=== PATIENT | female | born 1985 | race Caucasian/White ===

== ENCOUNTER 2017-04-24 20:26 | Emergency (ER) | payer SELFPAY ==
[2017-04-24 20:26] VITALS: BP 156/90
--- NOTE | 2017-04-24 21:25 | PHYS DOC ---
Past History Past Medical History: No Pertinent History Past Surgical History: No Surgical History Alcohol Use: None Drug Use: None Adult General Chief Complaint Chief Complaint: ABDOMINAL PAIN IN HPI HPI Patient is a 31 year old F who presents with abdominal pain and 39 weeks . Patient states she started to have contractions this evening and has had no care. Patient denies any water breaking. Patient denies any care. Patient states she was just diagnosed with being last month at [facility] in which she received an ultrasound that was approximately 34-35 weeks along. Patient is with a history of twins and a for twins. Patient has no other complaints. Review of Systems Review of Systems GEN: Denies fevers, chills, sweats HEENT: Denies blurred vision, sore throat CV: Denies chest pain RESP: Denies shortness of air, cough GI: Denies n/v/d : Abdominal contractions, NEURO: Denies confusion, dizziness MSK: Denies weakness, joint pain/swelling Allergies Allergies Allergies Coded Allergies Type Severity Reaction Last Updated Verified No Known Drug Allergies 04/22/16 No Physical Exam Physical Exam GEN.: No apparent distress. Alert and oriented. HEENT: Head is normocephalic, atraumatic NECK: Supple. LUNGS: CTAB. HEART: RRR, S1, S2 present. Peripheral pulses intact ABDOMEN: Soft, nontender. Positive bowel sounds. : Under sterile glove exam the cervix is dilated 10 cm with no bulging sac, heart tones were obtained at bedside by the nurse which were in the 150s EXTREMITIES: Without any cyanosis. NEUROLOGIC: Normal speech, normal tone PSYCHIATRIC: Normal affect, normal mood. SKIN: No ulcerations EKG EKG [] Radiology/Procedures Radiology/Procedures [] Course & Med Decision Making Course & Med Decision Making Pertinent Labs and Imaging studies reviewed. (See chart for details) ED course: Patient was seen and examined emergency room and a call was placed to [facility]. 2039: Discussed CC/HP/PMH with [facility]& and recommends contacting [facility] on- call since the patient was active labor and technically he should not transferred patient per EMTALA and active labor. 2044: Discussed CC/HP/PMH with Dr. Jacques (OB on at [facility]) and discussed the pros and cons of keeping the patient at [facility] versus transferring. We both acknowledged that EMTALA states that we should not transfer an OB patient in active labor, and by definition the patient was in active labor with the cervix dilated at 10 cm even though contractions were not regular. However, the OB was concerned that since we had no OB services at [facility] with no monitoring equipment for an OB patient and since the patient had no care and the last was a , he felt it was best to transfer the patient regardless to his hospital, [facility]. He accepted the patient understanding all conditions and we both felt it was in the patient's best interest to be transferred to [facility] for definitive care versus delivering at [facility] then transferring. EMS was on standby in emergency room ready to run lights and sirens. This plan was discussed with the patient and she was in agreement. [] Dragon Disclaimer Dragon Disclaimer This chart was dictated in whole or in part using Voice Recognition software in a busy, high-work load, and often noisy Emergency Department environment. It may contain unintended and wholly unrecognized errors or omissions. Departure Departure: Impression: Primary Impression: Abdominal pain affecting Additional Impressions: Cervix fully dilated Disposition: 02 XFER SHT-TRM HOSP (Dr. Sawyer montano at [facility]) Condition: STABLE (ERASED) Referrals: PCP,UNKNOWN (PCP) Problem Qualifiers FACUNDO GAMBOA DO Apr 24, 2017 21:25
== END 2017-04-24 20:49 | disposition short-term general hospital (02) ==
LOC: ER 20:26
DX: O26.893 Other specified pregnancy related conditions, third trimester (principal); R10.9 Unspecified abdominal pain; O65.5 Obstructed labor due to abnormality of maternal pelvic organs; O34.33 Maternal care for cervical incompetence, third trimester; Z3A.39 39 weeks gestation of pregnancy
CPT/HCPCS: 99285

== ENCOUNTER 2017-05-04 10:52 | Emergency (ER) | payer SELFPAY ==
[2017-05-04 11:00] VITALS: BP 132/85
--- NOTE | 2017-05-04 11:15 | PHYS DOC ---
General Chief Complaint: POST-OP PROBLEM Stated Complaint: KAILEE "POPPED OUT" Time Seen by MD: 10:54 Source: patient, old records Exam Limitations: no limitations Problems: History of Present Illness Initial Comments Patient is a 31-year-old female complaining that her operative wound kailee have popped. Patient is a 31-year-old female 10 days postdelivery of normal health ED term baby via at [facility] Dr. Jacques was the clinical rehabilitation liaison. She states that she had an uncomplicated section delivery of a healthy baby who is at home doing well. She is complaining because her kailee are uncomfortable she states that with her last section her kailee were removed after 7 days and she cannot understand why she has to wait 14 days this time. She has come requesting that I remove her kailee to allow her to be more comfortable. She denies any new vaginal symptoms no bowel or bladder issues no fever chills sweats or myalgias and no trauma. When her wound is evaluated she has no specific complaint about a specific staple or area of the incision she just in general states that the surgical wound is uncomfortable and is requesting that I remove her kailee. I asked if she had called her OB to which she replied no and that she would prefer to get her care done here and now. Her vital signs are stable and she is in no distress. Timing/Duration: other Modifying Factors: worse with movement, improves with rest Associated Symptoms: other Allergies: Coded Allergies: No Known Drug Allergies (Unverified , 04/22/16) Past Medical History Medical History: no pertinent history, other Surgical History: noncontributory ( section 04/24/2017) Para: 6 : 7 (h/o twins) Social History Smoker: non-smoker Alcohol: none Drugs: none Review of Systems Constitutional: denies chills, denies diaphoresis, denies fever, denies malaise Respiratory: denies cough, denies shortness of breath, denies wheezing Cardiovascular: denies chest pain, denies palpitations, denies syncope Gastrointestinal: denies abdominal pain, denies diarrhea, denies nausea, denies vomiting Genitourinary: denies discharge, denies dysuria, denies frequency, denies hematuria, denies pain Musculoskeletal: denies back pain, denies joint swelling, denies neck pain Skin: see HPI Psychiatric/Neurological: denies headache, denies numbness, denies paresthesia , denies seizure Hematologic/Lymphatic: denies blood clots, denies easy bleeding, denies easy bruising Physical Exam General Appearance: WD/WN (lites and minutes), no apparent distress Ear, Nose, Throat: hearing grossly normal, normal ENT inspection Neck: full range of motion, supple Respiratory: normal breath sounds, no respiratory distress Gastrointestinal: normal bowel sounds, soft, no organomegaly, other ( nondistended, stapled surgical wound with kailee appropriately in place. Is appropriately tender, there is no erythema wound edges are approximated and there is no bleeding or discharge. In summary it appears to be normal healing postoperative section wound on postoperative day #10.) Back: no vertebral tenderness, CVA tenderness (R) Extremities: normal range of motion, non-tender, normal inspection, no pedal edema, no calf tenderness Neurologic/Psychiatric: city carrier II-XII nml as tested, no motor/sensory deficits, alert, oriented x 3, other (slurring noted the patient also does have braces is difficult to determine if she might be slightly altered or if her speech may be slurred due to dental hardware) Skin: normal color, warm/dry ( postop wound as described above) Orders, Labs, Meds I advised the patient that with any questions regarding her wound her first call should be to her OB. I reassured her that it appeared she was healing well and no emergent condition is evident from today's evaluation. While it is possible she may have torn some scar tissue or an internal suture no evidence of that on today's exam. I discussed signs and symptoms to monitor as well as indications for urgent return to the department. Once again I urged her to call her OB with any questions regarding her surgical wound before seeking other medical treatment as that is what she will be advised. Her questions were answered she was reassured she expressed agreement and understanding of the treatment plan. Departure Time of Disposition: 11:13 Disposition: HOME, SELF-CARE Diagnosis: post-operative discomfort Condition: GOOD Patient Instructions: Delivery, Care After Additional Instructions: As discussed you may have put stress on an internal suture or torn some internal scar tissue. Either way no emergent medical condition regarding your stapled postoperative wound is evident from today's evaluation. Continue activity restrictions given to you by your clinical rehabilitation liaison until your follow-up. Follow-up with your surgeon as scheduled for wound check and anticipated staple removal. Return to ED with new or changing symptoms. JH BURLESON DO May 04, 2017 11:15
== END 2017-05-04 11:19 | disposition home or self-care (01) ==
LOC: ER 10:52
DX: Z39.2 Encounter for routine postpartum follow-up (principal); O90.89 Other complications of the puerperium, not elsewhere classified; Z98.890 Other specified postprocedural states
CPT/HCPCS: 99281

== ENCOUNTER 2017-10-23 12:30 | Emergency (ER) | payer OTHER ==
[~2017-10-23] VITALS: Ht 154.9 cm; Wt 72.6 kg
[2017-10-23 12:30] VITALS: BP 124/66
--- NOTE | 2017-10-25 06:12 | ED.ADGEN ---
Past History Past Medical History: No Pertinent History Past Surgical History: Alcohol Use: None Drug Use: None Adult General Chief Complaint Chief Complaint Upper back pain HPI HPI Patient is a 22-year-old female presents with diffuse upper back pain 3 days. 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 Patient reports diffuse perispinal pain, tenderness. Pain is described as sharp worse with movement and trunk rotation. Denies traumatic injury. Denies extremity weakness loss of sensation. Denies history of chronic upper back pain. Patient's taken [id number] medication without relief. She has not been evaluated for this complaint prior to ED today.[] Review of Systems Review of Systems ROS as per HPI.[] All other systems were reviewed and found to be within normal limits, except as documented in this note. Allergies Allergies Allergies Coded Allergies Type Severity Reaction Last Updated Verified No Known Drug Allergies 04/22/16 No Physical Exam Physical Exam Constitutional: Well developed, well nourished, no acute distress, non-toxic appearance. [] HENT: Normocephalic, atraumatic, bilateral external ears normal, oropharynx moist, nose normal. [] Eyes: PERRLA, EOMI, conjunctiva normal, no discharge. [] Neck: Normal range of motion, no tenderness, supple, no stridor. [] Cardiovascular:Heart rate regular rhythm, no murmur. [] Lungs & Thorax: Bilateral breath sounds clear to auscultation. [] Abdomen: Bowel sounds normal, soft, no tenderness. [] Skin: Warm, dry, no erythema, no rash. [] Back: Diffuse upper thoracic pain, tenderness.[] Extremities: No tenderness. [] Neurologic: Alert and oriented X 3. [] Psychologic: Affect normal, judgement normal, mood normal. [] Current Patient Data Vital Signs Vital Signs Date Time Temp Pulse Resp B/P (MAP) Pulse Ox O2 Delivery O2 Flow Rate FiO2 10/23/17 13:00 98 20 99 Room Air 10/23/17 12:30 98.5 EKG EKG [] Radiology/Procedures Radiology/Procedures [] Course & Med Decision Making Course & Med Decision Making Pertinent Labs and Imaging studies reviewed. (See chart for details) [Reproducible upper back pain, No neuro deficits. ] Final Impression Final Impression 1 Thoracic back pain] Problems: Dragon Disclaimer Dragon Disclaimer This electronic medical record was generated, in whole or in part, using a voice recognition dictation system. JUDY SILVA DO Oct 25, 2017 06:12
== END 2017-10-23 13:15 | disposition home or self-care (01) ==
LOC: ER 12:30
DX: M54.6 Pain in thoracic spine (principal)
CPT/HCPCS: 99283

== ENCOUNTER 2018-12-10 22:43 | Emergency (ER) | payer SELFPAY ==
[~2018-12-10] VITALS: Ht 154.9 cm; Wt 80.0 kg
[2018-12-10 23:16] LABS: BASO % 0 % (0-3); EOS # 0.2 x10^3/uL (0.0-0.7); EOS % 2 % (0-3); HEMATOCRIT 30.5 % (36.0-47.0); HEMOGLOBIN 9.6 g/dL (12.0-15.5); LYMPH # 1.4 x10^3/uL (1.0-4.8); LYMPH % 12 % (24-48); MEAN CORPUSCULAR HEMOGLOBIN 23 pg (25-35); MEAN CORPUSCULAR HGB CONC 31 g/dL (31-37); MEAN CORPUSCULAR VOLUME 73 fL (79-100); MONO # 0.7 x10^3/uL (0.0-1.1); MONO % 6 % (0-9); NEUT # 9.3 x10^3uL (1.8-7.7); NEUT % 80 % (31-73); PLATELET COUNT 320 x10^3/uL (140-400); RED BLOOD COUNT 4.21 x10^6/uL (3.50-5.40); RED CELL DISTRIBUTION WIDTH 15.3 % (11.5-14.5); WHITE BLOOD COUNT 11.5 x10^3/uL (4.0-11.0)
[2018-12-10 23:23] LABS: ALBUMIN 2.8 g/dL (3.4-5.0); ALBUMIN/GLOBULIN RATIO 0.7 (1.0-1.7); CALCIUM 8.6 mg/dL (8.5-10.1); CREATININE 0.5 mg/dL (0.6-1.0); POTASSIUM 3.9 mmol/L (3.5-5.1); TOTAL BILIRUBIN 0.5 mg/dL (0.2-1.0); TOTAL PROTEIN 6.9 g/dL (6.4-8.2)
[2018-12-10 23:29] LABS: BILIRUBIN,URINE NEG (NEG); CLARITY,URINE HAZY; COLOR,URINE YELLOW; GLUCOSE,URINE NEG (NEG)
[2018-12-10 23:30] LABS: BACTERIA,URINE MOD /HPF (0-FEW); NITRITE,URINE NEG (NEG); RBC,URINE OCC /HPF (0-2); SQUAMOUS EPITHELIAL CELL,UR OCC /LPF; UROBILINOGEN,URINE 1 mg/dL (0.2 mg/dL)
[2018-12-10] MEDS ORDERED: IV NORMAL SALINE 1,000ML 1,000 ML IV SCH (23:30)
[2018-12-10 23:44] LABS: % BANDS 5 % (0-9); % EOS 1 % (0-5); % LYMPHS 11 % (24-48); % MONOS 2 % (0-10); % SEGS 81 % (35-66); PLT ESTIMATE ADEQUATE (ADEQUATE)
[2018-12-10 23:45] LABS: ANISOCYTOSIS SLIGHT; HYPOCHROMIA SLIGHT; MICROCYTOSIS SLIGHT
--- NOTE | 2018-12-11 00:49 | PHYS DOC ---
Past History Past Medical History: No Pertinent History Past Surgical History: Alcohol Use: None Drug Use: None Adult General Chief Complaint Chief Complaint: ABDOMINAL PAIN IN HPI HPI Patient is a 33-year-old female who presents with report that she thinks that her water broke. Patient states that she is A2 and believes herself to have a due date of around December 25. She indicates that she has had no care. She states that she just found out she was late last month and states that she thought that the weight gain was because she thought maybe she had a tumor in her abdomen. She reports having a lot of pressure around her vagina and her lower back. She states that due to having had so many children, she does not feel labor pains the way she used to. She states that earlier this evening when she was in the shower, she felt a gush of fluid from her vagina and thought that maybe her water broke. She states that she has had a couple of similar episodes where she passed a small amount of fluid.[] Review of Systems Review of Systems Constitutional: Denies fever or chills [] Respiratory: Denies cough or shortness of breath [] Cardiovascular: No additional information not addressed in HPI [] GI: Complains of lower abdominal pressure without vomiting or diarrhea [] : Denies dysuria or hematuria. Complains of vaginal pressure. [] Musculoskeletal: Complains of lower back pressure and pain [] All other systems were reviewed and found to be within normal limits, except as documented in this note. Current Medications Current Medications Current Medications Medications (Trade) Dose Ordered Sig/Jason Start Time Stop Time Status Last Admin Dose Admin Sodium Chloride 1,000 ml @ 1,000 mls/hr Q1H 12/10/18 23:30 12/11/18 00:29 DC 12/10/18 23:59 1,000 MLS/HR Allergies Allergies Allergies Coded Allergies Type Severity Reaction Last Updated Verified No Known Drug Allergies 04/22/16 No Physical Exam Physical Exam Constitutional: Well developed, well nourished, no acute distress, non-toxic appearance. [] HENT: Normocephalic, atraumatic, bilateral external ears normal, oropharynx moist, no oral exudates, nose normal. [] Eyes: PERRLA, EOMI, conjunctiva normal, no discharge. [] Neck: Normal range of motion, no tenderness, supple, no stridor. [] Cardiovascular:Heart rate regular rhythm, no murmur [] Lungs & Thorax: Bilateral breath sounds clear to auscultation [] Abdomen: Bowel sounds normal, gravid, measuring to 38 cm. [] Skin: Warm, dry, no erythema, no rash. [] : A sterile speculum examination was performed with nurse odd job worker present. A thick white discharge was present. Unable to visualize cervical os. Bimanual exam demonstrates vertex presentation at -3 station with cervix fairly effaced. Extremities: No tenderness, no cyanosis, no clubbing, ROM intact. [] Neurologic: Alert and oriented X 3, no focal deficits noted. [] Current Patient Data Vital Signs Vital Signs Date Time Temp Pulse Resp B/P (MAP) Pulse Ox O2 Delivery O2 Flow Rate FiO2 12/10/18 22:43 98.4 89 20 116/80 (92) 99 Room Air Lab Results Laboratory Tests Test 12/10/18 22:43 12/10/18 23:08 White Blood Count 11.5 x10^3/uL (4.0-11.0) H Red Blood Count 4.21 x10^6/uL (3.50-5.40) Hemoglobin 9.6 g/dL (12.0-15.5) L Hematocrit 30.5 % (36.0-47.0) L Mean Corpuscular Volume 73 fL (79-100) L Mean Corpuscular Hemoglobin 23 pg (25-35) L Mean Corpuscular Hemoglobin Concent 31 g/dL (31-37) Red Cell Distribution Width 15.3 % (11.5-14.5) H Platelet Count 320 x10^3/uL (140-400) Neutrophils (%) (Auto) 80 % (31-73) H Lymphocytes (%) (Auto) 12 % (24-48) L Monocytes (%) (Auto) 6 % (0-9) Eosinophils (%) (Auto) 2 % (0-3) Basophils (%) (Auto) 0 % (0-3) Neutrophils # (Auto) 9.3 x10^3uL (1.8-7.7) H Lymphocytes # (Auto) 1.4 x10^3/uL (1.0-4.8) Monocytes # (Auto) 0.7 x10^3/uL (0.0-1.1) Eosinophils # (Auto) 0.2 x10^3/uL (0.0-0.7) Basophils # (Auto) 0.0 x10^3/uL (0.0-0.2) Segmented Neutrophils % 81 % (35-66) H Band Neutrophils % 5 % (0-9) Lymphocytes % 11 % (24-48) L Monocytes % 2 % (0-10) Eosinophils % 1 % (0-5) Platelet Estimate Adequate (ADEQUATE) Hypochromasia Slight Anisocytosis Slight Microcytosis Slight Sodium Level 140 mmol/L (136-145) Potassium Level 3.9 mmol/L (3.5-5.1) Chloride Level 104 mmol/L (98-107) Carbon Dioxide Level 23 mmol/L (21-32) Anion Gap 13 (6-14) Blood Urea Nitrogen 4 mg/dL (7-20) L Creatinine 0.5 mg/dL (0.6-1.0) L Estimated GFR (Cockcroft-Gault) 143.0 BUN/Creatinine Ratio 8 (6-20) Glucose Level 66 mg/dL (70-99) L Calcium Level 8.6 mg/dL (8.5-10.1) Total Bilirubin 0.5 mg/dL (0.2-1.0) Aspartate Amino Transferase (AST) 12 U/L (15-37) L Alanine Aminotransferase (ALT) 11 U/L (14-59) L Alkaline Phosphatase 116 U/L (46-116) Total Protein 6.9 g/dL (6.4-8.2) Albumin 2.8 g/dL (3.4-5.0) L Albumin/Globulin Ratio 0.7 (1.0-1.7) L Urine Collection Type Unknown Urine Color Yellow Urine Clarity Hazy Urine pH 7.0 Urine Specific [place] 1.020 Urine Protein 30 mg/dl (NEG-TRACE) Urine Glucose (UA) Neg mg/dL (NEG) Urine Ketones (Stick) Neg mg/dL (NEG) Urine Blood Trace (NEG) Urine Nitrite Neg (NEG) Urine Bilirubin Neg (NEG) Urine Urobilinogen Dipstick 1 mg/dL (0.2 mg/dL) Urine Leukocyte Esterase Small (NEG) Urine RBC Occ /HPF (0-2) Urine WBC 1-4 /HPF (0-4) Urine Squamous Epithelial Cells Occ /LPF Urine Bacteria Mod /HPF (0-FEW) EKG EKG [] Radiology/Procedures Radiology/Procedures [] Course & Med Decision Making Course & Med Decision Making Pertinent Labs and Imaging studies reviewed. (See chart for details) Patient moved to room upon arrival was evaluated by your medical staff and pelvi c exam was performed with nurse odd job worker present. Upon completion of workup, [facility] was contacted and Dr. Diallo, on-call for [facility], is accepting patient in transfer over to labor and delivery floor. Dragon Disclaimer Dragon Disclaimer This electronic medical record was generated, in whole or in part, using a voice recognition dictation system. Departure Departure: Impression: Primary Impression: Abdominal pain affecting Disposition: XFER SHT-TRM HOSP Condition: GOOD Referrals: PCP,NO (PCP) KATYA MANNING Jr. DO Dec 11, 2018 00:49
[2018-12-11 01:44] LABS: BARBITURATES NEG (NEG); BENZODIAZEPINES NEG (NEG); CANNABINOIDS NEG (NEG); COCAINE NEG (NEG); METHADONE NEG (NEG); OPIATES NEG (NEG); PHENCYCLIDINE NEG (NEG)
[2018-12-11 01:47] LABS: AMPHETAMINE/METHAMPHETAMINE NEG (NEG)
[2018-12-11 01:50] VITALS: BP 112/69
== END 2018-12-11 02:22 | disposition short-term general hospital (02) ==
LOC: ER 22:43
DX: O26.893 Other specified pregnancy related conditions, third trimester (principal); R10.30 Lower abdominal pain, unspecified; M54.5 Low back pain; Z3A.00 Weeks of gestation of pregnancy not specified; Z98.890 Other specified postprocedural states
CPT/HCPCS: 36415; 80053; 80307; 81001; 85007; 85025; 86900; 86901; 87086; 99285-25; J7030

== ENCOUNTER 2019-02-08 13:13 | Emergency (ER) | payer MEDICAID, OTHER ==
[~2019-02-08] VITALS: Ht 157.5 cm; Wt 68.9 kg
[2019-02-08] MEDS ORDERED: IV NORMAL SALINE 1,000ML 1,000 ML IV SCH (13:27)
[2019-02-08] MEDS ORDERED: KETOROLAC 30 MG/ML VIAL. IV ONE (13:30)
[2019-02-08] MEDS ORDERED: HYOSCYAMINE 0.125 MG TAB.RAPDIS PO ONE (13:30)
--- NOTE | 2019-02-08 13:39 | PHYS DOC ---
Past History Past Medical History: No Pertinent History (STACY LOVELL DO) Past Surgical History: (STACY LOVELL DO) Smoking: Cigarettes Alcohol Use: Rarely Drug Use: None (STACY LOVELL DO) Adult General Chief Complaint Chief Complaint: ABDOMINAL PAIN HPI HPI Patient is a 33-year-old female presents with diffuse abdominal pain, right worse than left. This started 2 days ago and improved with Excedrin. She was moving apartments yesterday. Pain became worse today and is more generalized. She is approximately 7 weeks post . She is not breast-feeding. Denies any vaginal bleeding, discharge, hematuria, nor dysuria. Denies any trauma. Denies any other surgical history on her abdomen other than the . She has taken no pain medicine today. Reports the pain is moderate to severe in intensity. Increased pain with movement, better with holding still. Some nausea, no vomiting or diarrhea.[] (STACY LOVELL DO) Review of Systems Review of Systems Constitutional: Denies fever or chills [] Eyes: Denies change in visual acuity, redness, or eye pain [] HENT: Denies nasal congestion or sore throat [] Respiratory: Denies cough or shortness of breath [] Cardiovascular: No chest pain, no palpitations, no dyspnea on exertion[] GI: See history of present illness[] : Denies dysuria or hematuria [] Musculoskeletal: Denies back pain or joint pain [] Integument: Denies rash or skin lesions [] Neurologic: Denies headache, focal weakness or sensory changes [] Endocrine: Denies polyuria or polydipsia [] All other systems were reviewed and found to be within normal limits, except as documented in this note. (STACY LOVELL DO) Current Medications Current Medications Current Medications Medications (Trade) Dose Ordered Sig/Jason Start Time Stop Time Status Last Admin Dose Admin Hyoscyamine (Anaspaz) 0.125 mg 1X ONCE 02/08/19 13:30 02/08/19 13:34 DC Ketorolac Tromethamine (Toradol 30mg Vial) 30 mg 1X ONCE 02/08/19 13:30 02/08/19 13:34 DC Ondansetron HCl (Zofran) 4 mg 1X ONCE 02/08/19 13:45 02/08/19 13:46 UNV Sodium Chloride 1,000 ml @ 1,000 mls/hr Q1H 02/08/19 13:27 02/08/19 14:26 ([facility]) Allergies Allergies Allergies Coded Allergies Type Severity Reaction Last Updated Verified No Known Drug Allergies 04/22/16 No ([facility]) Physical Exam Physical Exam Constitutional: Well developed, well nourished, no acute distress, non-toxic ap pearance. [] HENT: Normocephalic, atraumatic, bilateral external ears normal, oropharynx moist, no oral exudates, nose normal. [] Eyes: PERRLA, EOMI, conjunctiva normal, no discharge. [] Neck: Normal range of motion, no tenderness, supple, no stridor. [] Cardiovascular:Heart rate regular rhythm, no murmur [] Lungs & Thorax: Bilateral breath sounds clear to auscultation [] Abdomen: Bowel sounds normal, soft, diffuse tenderness, no rebound, no guarding, no rigidity, no Null's sign, no specific McBurney's point tenderness, no masses, no pulsatile masses. [] Skin: Warm, dry, no erythema, no rash. [] Back: No tenderness, no CVA tenderness. [] Extremities: No tenderness, no cyanosis, no clubbing, ROM intact, no edema. [] Neurologic: Alert and oriented X 3, normal motor function, normal sensory functi on, no focal deficits noted. [] Psychologic: Affect normal, judgement normal, mood normal. [] ([facility]) Current Patient Data Vital Signs Vital Signs Date Time Temp Pulse Resp B/P (MAP) Pulse Ox O2 Delivery O2 Flow Rate FiO2 02/08/19 13:20 98.0 97 20 100 Room Air ([facility]) EKG EKG [] ([facility]) Radiology/Procedures Radiology/Procedures CT abdomen/pelvis with contrast 02/08/2019 1:34 PM INDICATION: Right-sided abdominal pain COMPARISON: None available TECHNIQUE: Multiple axial CT images of the abdomen and pelvis were obtained after the intravenous administration of 75 mL Omnipaque 300. Coronal and sagittal reformats are provided. FINDINGS: Heart size within normal limits. Lung bases are clear. There is a 6 mm hypodense lesion within the medial segment left hepatic lobe which is too small to characterize. Findings are statistically favored represent simple cysts or hemangiomas. Spleen is nonenlarged. Adrenal glands are normal. Pancreas is normal. Calcific gallstones are identified within the gallbladder. The abdominal aorta is normal in course and caliber. There are no pathologically enlarged lymph nodes in the abdomen and pelvis. There is no abdominal free fluid. There is no free intraperitoneal air. Oral contrast was administered. Opacified bowel loops demonstrate normal mucosal fold pattern. Small and large bowel are normal in caliber. There is no evidence for bowel obstruction. There are no pericolonic inflammatory changes. A normal, nondilated appendix is visualized without adjacent inflammatory changes. Simple renal cyst in the superior pole right kidney measures 10 mm. The kidneys enhance symmetrically. There is no suspicious renal mass. There is no hydronephrosis. There are no suspected calculi within the kidneys, ureters or urinary bladder. Right adnexal cystic lesion is identified with crenulated margins measuring 16 mm suspicious for a hemorrhagic cyst within the right ovary. No suspicious left adnexal mass. Cystic lesion along the anterior lower uterine segment measures 22 x 17 mm and may represent a degenerating uterine fibroid versus ovarian cyst. No suspicious osseous normality is identified. IMPRESSION: 1. No evidence for bowel obstruction or inflammation. 2. Crenulated cystic lesion within the right adnexa measures 16 mm suspicious for hemorrhagic cyst. 3. Cystic area within the anterior lower uterine segment may represent degenerating uterine fibroid. Further characterization with ultrasound pelvis may be of benefit. 4. 6 mm hypodensity within the medial segment left hepatic lobe is too small to characterize. This is statistically favored represent benign etiology such as a simple cyst or hemangioma. 5. Cholelithiasis.[] (STACY LOVELL DO) Course & Med Decision Making Course & Med Decision Making Pertinent Labs and Imaging studies reviewed. (See chart for details) ED course: Patient arrived, was placed in bed, and tolerated exam well. IV access was established, she was given IV fluids as well as pain medicine. She was able to tolerate oral contrast. She was transported to and from radiology with any complications. After returning from radiology, discussing the findings with the patient, she had increasing pain. Additional medicine was administered, an ultrasound was ordered due to the gallstones concern for possible obstruction. She is 13, with 7 live births.[] (STACY LOVELL DO) Course & Med Decision Making Reviewed history of patient's at shift change onset of severe right upper quadrant and epigastric pain that at times radiated to right shoulder since last night. Pain started after meal at [employer] restaurant. Mother had her gallbladder removed at age 30, Uncles had gallbladder removed at age 30's, Aunt had her gallbladder removed at age 25- and other family members. Discussed labs and US results with pt. and Dr. Mares- Plan transfer to [facility] for possible surgery . 1899 hrs. [facility] accepts pt. in transfer. Consult to Dr. Edwards. Discussed presentation and eval with Dr. Edwards - will consult on pt. Impression: 1. Abdomen Pain 2. Acute cholecystitis with stones 3. Leukocytosis 17.6 4. Microcytic hyperchromic indices 76/24 5. Thrombocytosis 410 (MARY REYNA MD) Dragon Disclaimer Dragon Disclaimer This electronic medical record was generated, in whole or in part, using a voice recognition dictation system. (STACY LOVELL DO) Departure Departure: Referrals: PCP,NO (PCP) Discharge Summary Visit Information Final Diagnosis Problems Medical Problems: (1) Cholecystitis, acute with cholelithiasis Status: Acute (MARY REYNA MD) Brief Hospital Course Allergies Allergies Coded Allergies Type Severity Reaction Last Updated Verified No Known Drug Allergies 04/22/16 No Vital Signs Vital Signs Date Time Temp Pulse Resp B/P (MAP) Pulse Ox O2 Delivery O2 Flow Rate FiO2 02/08/19 19:38 58 20 122/56 (78) 96 Room Air 02/08/19 13:20 98.0 Lab Results Laboratory Tests Test 02/08/19 13:48 02/08/19 14:27 White Blood Count 17.6 x10^3/uL (4.0-11.0) Red Blood Count 5.29 x10^6/uL (3.50-5.40) Hemoglobin 12.4 g/dL (12.0-15.5) Hematocrit 40.0 % (36.0-47.0) Mean Corpuscular Volume 76 fL (79-100) Mean Corpuscular Hemoglobin 24 pg (25-35) Mean Corpuscular Hemoglobin Concent 31 g/dL (31-37) Red Cell Distribution Width 20.7 % (11.5-14.5) Platelet Count 410 x10^3/uL (140-400) Neutrophils (%) (Auto) 85 % (31-73) Lymphocytes (%) (Auto) 10 % (24-48) Monocytes (%) (Auto) 4 % (0-9) Eosinophils (%) (Auto) 1 % (0-3) Basophils (%) (Auto) 0 % (0-3) Neutrophils # (Auto) 14.9 x10^3uL (1.8-7.7) Lymphocytes # (Auto) 1.7 x10^3/uL (1.0-4.8) Monocytes # (Auto) 0.7 x10^3/uL (0.0-1.1) Eosinophils # (Auto) 0.2 x10^3/uL (0.0-0.7) Basophils # (Auto) 0.1 x10^3/uL (0.0-0.2) Segmented Neutrophils % 85 % (35-66) Band Neutrophils % 3 % (0-9) Lymphocytes % 8 % (24-48) Monocytes % 2 % (0-10) Eosinophils % 2 % (0-5) Toxic Vacuolation Present Platelet Estimate Increased (ADEQUATE) Large Platelets Occ Polychromasia Present Anisocytosis Present Microcytosis Slight Tear Drop Cells Occ Ovalocytes Occ Sodium Level 140 mmol/L (136-145) Potassium Level 4.1 mmol/L (3.5-5.1) Chloride Level 105 mmol/L (98-107) Carbon Dioxide Level 26 mmol/L (21-32) Anion Gap 9 (6-14) Blood Urea Nitrogen 11 mg/dL (7-20) Creatinine 0.9 mg/dL (0.6-1.0) Estimated GFR (Cockcroft-Gault) 72.6 BUN/Creatinine Ratio 12 (6-20) Glucose Level 102 mg/dL (70-99) Calcium Level 8.9 mg/dL (8.5-10.1) Total Bilirubin 0.6 mg/dL (0.2-1.0) Aspartate Amino Transf (AST/SGOT) 14 U/L (15-37) Alanine Aminotransferase (ALT/SGPT) 17 U/L (14-59) Alkaline Phosphatase 67 U/L (46-116) Total Protein 7.6 g/dL (6.4-8.2) Albumin 3.8 g/dL (3.4-5.0) Albumin/Globulin Ratio 1.0 (1.0-1.7) Lipase 69 U/L (73-393) Urine Collection Type Unknown Urine Color Yellow Urine Clarity Clear Urine pH 5.5 Urine Specific [place] 1.025 Urine Protein Trace (NEG-TRACE) Urine Glucose (UA) Neg mg/dL (NEG) Urine Ketones (Stick) Neg mg/dL (NEG) Urine Blood Small (NEG) Urine Nitrite Neg (NEG) Urine Bilirubin Neg (NEG) Urine Urobilinogen Dipstick 0.2 mg/dL (0.2 mg/dL) Urine Leukocyte Esterase Neg (NEG) Urine RBC 1-2 /HPF (0-2) Urine WBC 1-4 /HPF (0-4) Urine Squamous Epithelial Cells Occ /LPF Urine Bacteria 0 /HPF (0-FEW) Urine Mucus Slight /LPF Brief Hospital Course Ms. Pascal is a 33 old female who presented with abd. pain. Found to have acute cholecystitis., Transfer to [facility]- Dr. Mares, Surgical consult with Dr. Edwards. (MARY REYNA MD) Discharge Information Condition at Discharge: Stable Disposition/Orders: D/C to Another Facility Dischare Medications Current Medications Sodium Chloride 1,000 ml @ 1,000 mls/hr Q1H IV Last administered on 02/08/19 13:56; Start 02/08/19 at 13:27; Stop 02/08/19 at 14:26; Status DC Ketorolac Tromethamine (Toradol 30mg Vial) 30 mg 1X ONCE IV Last administered on 02/08/19 13:30; Start 02/08/19 at 13:30; Stop 02/08/19 at 13:34; Status DC Hyoscyamine (Anaspaz) 0.125 mg 1X ONCE PO Last administered on 02/08/19 13:59; Start 02/08/19 at 13:30; Stop 02/08/19 at 13:34; Status DC Ondansetron HCl (Zofran) 4 mg 1X ONCE IV Last administered on 02/08/19 13:57; Start 02/08/19 at 13:45; Stop 02/08/19 at 13:46; Status DC Iohexol (Omnipaque 300 Mg/ml) 75 ml 1X ONCE IV Last administered on 02/08/19 14:57; Start 02/08/19 at 13:45; Stop 02/08/19 at 13:46; Status DC Iohexol (Omnipaque 240 Mg/ml) 30 ml 1X ONCE PO Last administered on 02/08/19at 14:56; Start 02/08/19 at 13:45; Stop 02/08/19 at 13:46; Status DC Dicyclomine HCl (Bentyl) 10 mg 1X ONCE IM Last administered on 02/08/19at 16:50; Start 02/08/19 at 16:15; Stop 02/08/19 at 16:20; Status DC Metronidazole 100 ml @ 100 mls/hr 1X ONCE IV Last administered on 02/08/19 19:36; Start 02/08/19 at 18:45; Stop 02/08/19 at 19:44; Status DC Ceftriaxone Sodium 1 gm/ Sodium Chloride 50 ml @ 100 mls/hr 1X ONCE IV Last administered on 02/08/19at 19:18; Start 02/08/19 at 18:45; Stop 02/08/19 at 19:14; Status DC Morphine Sulfate (Morphine 10mg Syringe) 10 mg 1X ONCE SQ Last administered on 02/08/19 19:22; Start 02/08/19 at 18:45; Stop 02/08/19 at 19:00; Status DC Lactated Ringer's 1,000 ml @ 1,000 mls/hr 1X ONCE IV Last administered on 02/08/19at 19:15; Start 02/08/19 at 19:00; Stop 02/08/19 at 19:59; Status DC Sodium Chloride 50 ml @ As Directed STK-MED ONCE .ROUTE ; Start 02/08/19 at 19:11; Stop 02/08/19 at 19:12; Status DC Ceftriaxone Sodium (Rocephin) 1 gm STK-MED ONCE .ROUTE ; Start 02/08/19 at 19:11; Stop 02/08/19 at 19:12; Status DC (MARY REYNA MD) Dragon Disclaimer This chart was dictated in whole or in part using Voice Recognition software in a busy, high-work load, and often noisy Emergency Department environment. It may contain unintended and wholly unrecognized errors or omissions. (MARY REYNA MD) STACY LOVELL DO Feb 08, 2019 13:39 MARY REYNA MD Feb 08, 2019 19:14
[2019-02-08] MEDS ORDERED: IOHEXOL 300 MG/ML 75 ML VIAL. IV ONE (13:45)
[2019-02-08] MEDS ORDERED: IOHEXOL 240 MG/ML 50ML VIAL. PO ONE (13:45)
[2019-02-08] MEDS ORDERED: ONDANSETRON PF 4 MG/2 ML VIAL. IV ONE (13:45)
[2019-02-08 14:03] LABS: BASO # 0.1 x10^3/uL (0.0-0.2); BASO % 0 % (0-3); EOS # 0.2 x10^3/uL (0.0-0.7); EOS % 1 % (0-3); HEMOGLOBIN 12.4 g/dL (12.0-15.5); LYMPH # 1.7 x10^3/uL (1.0-4.8); LYMPH % 10 % (24-48); MEAN CORPUSCULAR HEMOGLOBIN 24 pg (25-35); MEAN CORPUSCULAR HGB CONC 31 g/dL (31-37); MEAN CORPUSCULAR VOLUME 76 fL (79-100); MONO # 0.7 x10^3/uL (0.0-1.1); MONO % 4 % (0-9); NEUT # 14.9 x10^3uL (1.8-7.7); NEUT % 85 % (31-73); PLATELET COUNT 410 x10^3/uL (140-400); RED BLOOD COUNT 5.29 x10^6/uL (3.50-5.40); RED CELL DISTRIBUTION WIDTH 20.7 % (11.5-14.5); WHITE BLOOD COUNT 17.6 x10^3/uL (4.0-11.0)
[2019-02-08 14:20] LABS: ALBUMIN 3.8 g/dL (3.4-5.0); CALCIUM 8.9 mg/dL (8.5-10.1); CREATININE 0.9 mg/dL (0.6-1.0); GFR 72.6; TOTAL BILIRUBIN 0.6 mg/dL (0.2-1.0); TOTAL PROTEIN 7.6 g/dL (6.4-8.2)
[2019-02-08 14:24] LABS: % BANDS 3 % (0-9); % EOS 2 % (0-5); % LYMPHS 8 % (24-48); % MONOS 2 % (0-10); % SEGS 85 % (35-66); PLT ESTIMATE INCREASED (ADEQUATE); POTASSIUM 4.1 mmol/L (3.5-5.1)
[2019-02-08 14:25] LABS: TOXIC VACUOLATION PRESENT
[2019-02-08 14:26] LABS: ANISOCYTOSIS PRESENT; MICROCYTOSIS SLIGHT; POLYCHROMASIA PRESENT
[2019-02-08 14:28] LABS: OVALOCYTES OCC; TEAR DROP CELLS OCC
[2019-02-08 14:54] LABS: BACTERIA,URINE 0 /HPF (0-FEW); BILIRUBIN,URINE NEG (NEG); CLARITY,URINE CLEAR; COLOR,URINE YELLOW; GLUCOSE,URINE NEG (NEG); NITRITE,URINE NEG (NEG); SQUAMOUS EPITHELIAL CELL,UR OCC /LPF; UROBILINOGEN,URINE 0.2 mg/dL (0.2 mg/dL)
--- NOTE | 2019-02-08 15:35 | RAD ---
PQRS Compliance Statement: One or more of the following individualized dose reduction techniques were utilized for this examination: 1. Automated exposure control 2. Adjustment of the mA and/or kV according to patient size 3. Use of iterative reconstruction technique CT abdomen/pelvis with contrast 02/08/2019 1:34 PM INDICATION: Right-sided abdominal pain COMPARISON: None available TECHNIQUE: Multiple axial CT images of the abdomen and pelvis were obtained after the intravenous administration of 75 mL Omnipaque 300. Coronal and sagittal reformats are provided. FINDINGS: Heart size within normal limits. Lung bases are clear. There is a 6 mm hypodense lesion within the medial segment left hepatic lobe which is too small to characterize. Findings are statistically favored represent simple cysts or hemangiomas. Spleen is nonenlarged. Adrenal glands are normal. Pancreas is normal. Calcific gallstones are identified within the gallbladder. The abdominal aorta is normal in course and caliber. There are no pathologically enlarged lymph nodes in the abdomen and pelvis. There is no abdominal free fluid. There is no free intraperitoneal air. Oral contrast was administered. Opacified bowel loops demonstrate normal mucosal fold pattern. Small and large bowel are normal in caliber. There is no evidence for bowel obstruction. There are no pericolonic inflammatory changes. A normal, nondilated appendix is visualized without adjacent inflammatory changes. Simple renal cyst in the superior pole right kidney measures 10 mm. The kidneys enhance symmetrically. There is no suspicious renal mass. There is no hydronephrosis. There are no suspected calculi within the kidneys, ureters or urinary bladder. Right adnexal cystic lesion is identified with crenulated margins measuring 16 mm suspicious for a hemorrhagic cyst within the right ovary. No suspicious left adnexal mass. Cystic lesion along the anterior lower uterine segment measures 22 x 17 mm and may represent a degenerating uterine fibroid versus ovarian cyst. No suspicious osseous normality is identified. IMPRESSION: 1. No evidence for bowel obstruction or inflammation. 2. Crenulated cystic lesion within the right adnexa measures 16 mm suspicious for hemorrhagic cyst. 3. Cystic area within the anterior lower uterine segment may represent degenerating uterine fibroid. Further characterization with ultrasound pelvis may be of benefit. 4. 6 mm hypodensity within the medial segment left hepatic lobe is too small to characterize. This is statistically favored represent benign etiology such as a simple cyst or hemangioma. 5. Cholelithiasis. Electronically signed by: Kaley Maldonado MD (02/08/2019 3:32 PM) [facility]
[2019-02-08] MEDS ORDERED: DICYCLOMINE 20 MG/2 ML AMPUL. IM ONE (16:15)
--- NOTE | 2019-02-08 18:23 | RAD ---
Exam performed: Complete Abdominal Ultrasound Date of Service: 02/08/2019.. Comparison: None available History: Right-sided abdominal pain, history of cholelithiasis Technique; Real time and whelan scale imaging of the complete abdomen is performed and images are obtained. Findings: The liver is normal in size and homogeneous in echogenicity, without focal lesions, it measures 17.0 cm. Cystic lesion seen previously in the left hepatic lobe is not clearly seen on this study. Gallbladder is normal. No intrahepatic or extrahepatic biliary dilatation is seen. The common bile duct measures 2.3 mm in AP dimension. Gallbladder is filled with calculi and demonstrates thick lau. Gallbladder wall measures 4.1 mm. No pericholecystic fluid. The spleen measures 11.9cm. The right kidney measures 12.5 x 4.2 x 3.8cm, and the left kidney measures 13.0 x 3.9 x 5.7 cm. There is a small 1.0 cm cyst in the superior pole of the right kidney There is normal renal contour and echogenicity bilaterally, without stones or hydronephrosis. The visualized aorta, pancreas and IVC appear unremarkable. Impression: Cholelithiasis with gallbladder wall thickening. Although pericholecystic fluid is not identified, however acute cholecystitis is suspected.. Electronically signed by: Rebecca Parks MD (02/08/2019 6:20 PM) [facility]
[2019-02-08] MEDS ORDERED: MORPHINE SULFATE 10 MG/ML SYRINGE. SQ ONE (18:45)
[2019-02-08] MEDS ORDERED: IV RINGERS SOLUTION,LACTATED 1,000 ML IV ONE (19:00)
[2019-02-08] MEDS ORDERED: cefTRIAXone SODIUM 1 GM VIAL ONE (19:11)
[2019-02-08] MEDS ORDERED: IV NORMAL SALINE 50ML 50 ML ONE (19:11)
[2019-02-08 19:38] VITALS: BP 122/56
== END 2019-02-08 20:25 | disposition short-term general hospital (02) ==
LOC: ER 13:13
DX: K80.00 Calculus of gallbladder with acute cholecystitis without obstruction (principal); D72.829 Elevated white blood cell count, unspecified; D47.3 Essential (hemorrhagic) thrombocythemia; D50.9 Iron deficiency anemia, unspecified; F17.210 Nicotine dependence, cigarettes, uncomplicated; Z98.890 Other specified postprocedural states
CPT/HCPCS: 36415; 74177; 76700; 80053; 81001; 83690; 85007; 85025; 96365; 96367; 96372; 96375; 99285; J0500; J0696; J1885; J2270; J2405; J3490; J7120; Q9966; Q9967; J7030

== ENCOUNTER 2019-12-06 14:16 | Emergency (ER) | payer SELFPAY ==
[~2019-12-06] VITALS: Ht 157.5 cm; Wt 60.7 kg
[2019-12-06 14:16] VITALS: BP 128/80
--- NOTE | 2019-12-06 15:12 | RAD ---
Three-view study of the lumbar spine Clinical indications: Low back pain. FINDINGS: The transverse processes are intact. No compression fracture or discitis or lytic process or anterolisthesis is evident. IMPRESSION: No acute fracture. Electronically signed by: Darren Wise MD (12/06/2019 3:09 PM) [id number]
--- NOTE | 2019-12-06 15:21 | PHYS DOC ---
Past History Past Medical History: Anxiety, Depression, Hypertension, Ovarian Cyst Past Surgical History: Cholecystectomy, Additional Past Surgical Histo: C - Section x2 Smoking: Cigarettes Alcohol Use: Rarely Drug Use: None General Adult EDM: Chief Complaint: LOWER EXT PAIN HPI: HPI: Patient is a 33-year-old female who presented to ER today for evaluation of low back pain that radiated to her right buttock and right knee area. Patient says symptoms started couple days ago, she woke up this morning she has some numbness on the right side of her lower extremity however she was able to walk without any problem. Patient said the pain got worse whenever she stands up or or sit on her buttock. Patient denies any abdominal pain, no nausea vomiting, no fever. Patient denies any injury. 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 Patient denies any bowel or bladder incontinence. Review of Systems: Review of Systems: Constitutional: Denies fever or chills Eyes: Denies change in visual acuity HENT: Denies nasal congestion or sore throat Respiratory: Denies cough or shortness of breath Cardiovascular: Denies chest pain or edema GI: Denies abdominal pain, nausea, vomiting, bloody stools or diarrhea : Denies dysuria Musculoskeletal: Positive for low back pain. Integument: Denies rash Neurologic: Denies headache, focal weakness or sensory changes Endocrine: Denies polyuria or polydipsia Lymphatic: Denies swollen glands Psychiatric: Denies depression or anxiety Heart Score: Risk Factors: Risk Factors: DM, Current or recent (<one month) smoker, HTN, HLP, family history of CAD, obesity. Risk Scores: Score 0 - 3: 2.5% MACE over next 6 weeks - Discharge Home Score 4 - 6: 20.3% MACE over next 6 weeks - Admit for Clinical Observation Score 7 - 10: 72.7% MACE over next 6 weeks - Early Invasive Strategies Allergies: Allergies: Allergies Coded Allergies Type Severity Reaction Last Updated Verified No Known Drug Allergies 04/22/16 No Physical Exam: PE: Constitutional: Well developed, well nourished, no acute distress, non-toxic appearance. [] HENT: Normocephalic, atraumatic, bilateral external ears normal, oropharynx moist, no oral exudates, nose normal. [] Eyes: PERRLA, EOMI, conjunctiva normal, no discharge. [] Neck: Normal range of motion, no tenderness, supple, no stridor. [] Cardiovascular:Heart rate regular rhythm, no murmur [] Lungs & Thorax: Bilateral breath sounds clear to auscultation [] Abdomen: Bowel sounds normal, soft, no tenderness, no masses, no pulsatile masses. [] Skin: Warm, dry, no erythema, no rash. [] Back: No tenderness, no CVA tenderness. [] Extremities: No tenderness, no cyanosis, no clubbing, ROM intact, no edema. [] Neurologic: Alert and oriented X 3, normal motor function, normal sensory function, no focal deficits noted. Patient has good bilateral patellar tendon reflexes, patient can move all her lower extreme without any problem. Psychologic: Affect normal, judgement normal, mood normal. [] Current Patient Data: Labs: Laboratory Tests Test 12/06/19 14:51 POC Urine HCG, Qualitative hcg negative (Negative) Vital Signs: Vital Signs Date Time Temp Pulse Resp B/P (MAP) Pulse Ox O2 Delivery O2 Flow Rate FiO2 12/06/19 14:16 98.6 86 16 128/80 (96 99 EKG: EKG: [] Radiology/Procedures: Radiology/Procedures: [][place] [id number] IMAGING REPORT Signed PATIENT: YESENIA EPPERSON ACCOUNT: [id number] : 1985 LOCATION: ER AGE: 34 SEX: F EXAM STATUS: REG ER ORD. PHYSICIAN: KHANH DAVIS DO REASON: LOWER BACK PAIN PROCEDURE: LUMBAR SPINE 2-3V Three-view study of the lumbar spine Clinical indications: Low back pain. FINDINGS: The transverse processes are intact. No compression fracture or discitis or lytic process or anterolisthesis is evident. IMPRESSION: No acute fracture. Electronically signed by: Mendoza Wise MD (12/06/2019 3:09 PM) [id number] DICTATED AND SIGNED BY: MENDOZA WISE MD DATE: 12/06/19 1509 CC: PCP,NO; KHANH DAVIS DO ~ Course & Med Decision Making: Course & Med Decision Making Pertinent Labs and Imaging studies reviewed. (See chart for details) Patient is a 33-year-old female who was evaluated in the ER due to low back pain that radiated to her right knee area with some numbness. X-ray did not show any acute problem. Patient is suspected acute sciatica problem, she was discharged home and she will need to follow-up with her family doctor for outpatient evaluation with MRI of her low back. Patient is amenable to plan of care. Dragon Disclaimer: Dragon Disclaimer: This electronic medical record was generated, in whole or in part, using a voice recognition dictation system. Departure Departure: Impression: Primary Impression: Acute low back pain with sciatica Disposition: HOME/RESIDENCE PRIOR TO ADM Condition: STABLE Referrals: PCP,EVY (PCP) PLEASE FOLLOW UP WITH YOUR DOCTOR FOR OUTPATIENT MRI of your lower back. Patient Instructions: Sciatica Additional Instructions: Thank you for visiting our Emergency Department. We appreciate you trusting us with your care. If any additional problems come up don't hesitate to return to visit us. Please follow up with your primary care provider so they can plan additional care if needed and know about the problem that you had. If symptoms worsen come back to the Emergency Department. Any concerning symptoms that start such as chest pain, shortness of air, weakness or numbness on one side of the body, running high fevers or any other concerning symptoms return to the ER. KHANH DAVIS DO December 06, 2019 15:21
== END 2019-12-06 15:40 | disposition home or self-care (01) ==
LOC: ER 14:16
DX: M54.41 Lumbago with sciatica, right side (principal); I10 Essential (primary) hypertension; F17.210 Nicotine dependence, cigarettes, uncomplicated; Z98.890 Other specified postprocedural states; Z90.49 Acquired absence of other specified parts of digestive tract
CPT/HCPCS: 72100; 81025; 99284-25

== ENCOUNTER 2020-01-31 07:42 | Emergency (ER) | payer SELFPAY ==
[~2020-01-31] VITALS: Ht 162.6 cm; Wt 68.2 kg
[2020-01-31 07:48] VITALS: BP 123/76
--- NOTE | 2020-01-31 08:18 | RAD ---
EXAM: Right shoulder, 3 views. HISTORY: Hit a door. COMPARISON: None. FINDINGS: 3 views of the right shoulder obtained. There is no acute fracture, dislocation or subluxation. There is smooth osseous excrescence along the proximal humeral metaphysis measuring approximately 2.5 cm. IMPRESSION: 1. No acute osseous finding. 2. Smooth benign-appearing osseous excrescence along the proximal humeral metaphysis, the appearance of which favors an osteochondroma. Electronically signed by: Aislinn Esquivel MD (01/31/2020 8:15 AM) [id number]
--- NOTE | 2020-01-31 08:41 | PHYS DOC ---
Past History Past Medical History: Anxiety, Depression, Hypertension, Ovarian Cyst Past Surgical History: Cholecystectomy, Additional Past Surgical Histo: C - Section x2 Smoking: Cigarettes Alcohol Use: Rarely Drug Use: None General Adult EDM: Chief Complaint: SHOULDER INJURY HPI: HPI: Patient is a 34-year-old female who presents after she fell backwards against a door frame and hit her right shoulder. She states it is painful when she puts her arm through range of motion and feels better when there is compression placed on the shoulder. She denies any other injuries. [] Review of Systems: Review of Systems: Constitutional: Denies fever or chills Eyes: Denies change in visual acuity HENT: Denies nasal congestion or sore throat Respiratory: Denies cough or shortness of breath Cardiovascular: Denies chest pain or edema GI: Denies abdominal pain, nausea, vomiting, bloody stools or diarrhea : Denies dysuria Musculoskeletal: Per HPI Integument: Denies rash Neurologic: Denies headache, focal weakness or sensory changes Endocrine: Denies polyuria or polydipsia Lymphatic: Denies swollen glands Psychiatric: Denies depression or anxiety Heart Score: Risk Factors: Risk Factors: DM, Current or recent (<one month) smoker, HTN, HLP, family history of CAD, obesity. Risk Scores: Score 0 - 3: 2.5% MACE over next 6 weeks - Discharge Home Score 4 - 6: 20.3% MACE over next 6 weeks - Admit for Clinical Observation Score 7 - 10: 72.7% MACE over next 6 weeks - Early Invasive Strategies Allergies: Allergies: Allergies Coded Allergies Type Severity Reaction Last Updated Verified No Known Drug Allergies 04/22/16 No Physical Exam: PE: Constitutional: Well developed, well nourished, mild e distress, non-toxic appearance. [] HENT: Normocephalic, atraumatic, bilateral external ears normal, oropharynx moist, no oral exudates, nose normal. [] Eyes: PERRLA, EOMI, conjunctiva normal, no discharge. [] Neck: Normal range of motion, no tenderness, supple, no stridor. [] Cardiovascular:Heart rate regular rhythm, no murmur [] Lungs & Thorax: Bilateral breath sounds clear to auscultation [] Abdomen: Bowel sounds normal, soft, no tenderness, no masses, no pulsatile masses. [] Skin: Warm, dry, no erythema, no rash. [] Back: No tenderness, no CVA tenderness. [] Extremities: Tender to palp right posterior shoulder no bruising no abrasion no swelling no obvious deformity noted she is able to take her arm through an active range of motion [] Neurologic: Alert and oriented X 3, normal motor function, normal sensory function, no focal deficits noted. [] Psychologic: Affect normal, judgement normal, mood normal. [] Current Patient Data: Vital Signs: Vital Signs Date Time Temp Pulse Resp B/P (MAP) Pulse Ox O2 Delivery O2 Flow Rate FiO2 01/31/20 07:48 98.4 84 16 123/76 (92) 100 Room Air EKG: EKG: [] Radiology/Procedures: Radiology/Procedures: PROCEDURE: SHOULDER 2+V RIGHT EXAM: Right shoulder, 3 views. HISTORY: Hit a door. COMPARISON: None. FINDINGS: 3 views of the right shoulder obtained. There is no acute fracture, dislocation or subluxation. There is smooth osseous excrescence along the proximal humeral metaphysis measuring approximately 2.5 cm. IMPRESSION: 1. No acute osseous finding. 2. Smooth benign-appearing osseous excrescence along the proximal humeral metaphysis, the appearance of which favors an osteochondroma.[] Course & Med Decision Making: Course & Med Decision Making Pertinent Labs and Imaging studies reviewed. (See chart for details) [] Dragon Disclaimer: Dragon Disclaimer: This electronic medical record was generated, in whole or in part, using a voice recognition dictation system. Departure Departure: Impression: Primary Impression: Contusion of right shoulder Qualified Codes: S40.011A - Contusion of right shoulder, initial encounter Disposition: HOME/RESIDENCE PRIOR TO ADM Condition: STABLE Referrals: PCP,NO (PCP) Patient Instructions: Shoulder Exercises, Generic, SportsMed Additional Instructions: Return to the emergency department any new or concerning symptoms Scripts Naproxen (NAPROXEN) 500 Mg Tablet. 1 TAB PO Q12HR PRN for PAIN, #60 TAB 1 Refill Prov: PRINCESS BARRAGAN DO 01/31/20 Justification of Admission: Justification of Admission: Justification of Admission Dx: No PRINCESS BARRAGAN DO Jan 31, 2020 08:41
[2020-01-31] MEDS ORDERED: NAPR500T8 PO (08:46)
== END 2020-01-31 08:51 | disposition home or self-care (01) ==
LOC: ER 07:42
DX: S40.011A Contusion of right shoulder, initial encounter (principal); I10 Essential (primary) hypertension; F17.210 Nicotine dependence, cigarettes, uncomplicated; W18.09XA Striking against other object with subsequent fall, initial encounter; Y93.89 Activity, other specified; Y92.89 Other specified places as the place of occurrence of the external cause; Y99.8 Other external cause status
CPT/HCPCS: 73030; 99283

== ENCOUNTER 2020-03-22 21:18 | Emergency (ER) | payer SELFPAY ==
[~2020-03-22] VITALS: Ht 162.6 cm; Wt 59.3 kg
[~2020-03-22 21:18] MED LIST: NAPR500T8 PO
--- NOTE | 2020-03-22 22:18 | PHYS DOC ---
Past History Past Medical History: Anxiety, Depression, Hypertension, Ovarian Cyst Past Surgical History: Cholecystectomy, Additional Past Surgical Histo: C - Section x2 Smoking: Cigarettes Alcohol Use: Rarely Drug Use: None General Adult EDM: Chief Complaint: MECHANICAL FALL HPI: HPI: The history was obtained from the patient. Patient is a 34-year-old female with no reported PMH who presents with a chief complaint of syncope. Patient states she is had 6 episodes of syncope today. She states that she is felt very lightheaded over the past 3 days. States these episodes have occurred several months ago. She was evaluated and no cause could identified. She denies any prodromal symptoms leading up to the syncopal events. States 1 thing she could be standing in the next she knows she is on the ground. Denies striking her head. Denies any history of seizure-like activity. Does smoke marijuana but denies any other drug or alcohol usage. States that she is on Depo-Provera injection for contraception. Does note some intermittent chest heaviness over the past 3 days. Denies any exertional component. Denies any nausea or diaphoresis. Denies any shortness breath or cough. Denies fevers. Denies any family history of cardiac disease at young age. Denies any headaches or acute vision changes. Has been able to ambulate. States occasionally the syncope seems to occur when she goes from a seated to standing position. No other complaints. Review of Systems: Review of Systems: Constitutional: Denies fever or chills Eyes: Denies change in visual acuity HENT: Denies nasal congestion or sore throat Respiratory: Denies cough or shortness of breath Cardiovascular: Positive for syncope and chest pain GI: Denies abdominal pain, nausea, vomiting, bloody stools or diarrhea : Denies dysuria Musculoskeletal: Denies back pain or joint pain Integument: Denies rash Neurologic: Denies headache, focal weakness or sensory changes Endocrine: Denies polyuria or polydipsia Lymphatic: Denies swollen glands Psychiatric: Denies depression or anxiety Heart Score: Risk Factors: Risk Factors: DM, Current or recent (<one month) smoker, HTN, HLP, family history of CAD, obesity. Risk Scores: Score 0 - 3: 2.5% MACE over next 6 weeks - Discharge Home Score 4 - 6: 20.3% MACE over next 6 weeks - Admit for Clinical Observation Score 7 - 10: 72.7% MACE over next 6 weeks - Early Invasive Strategies Allergies: Allergies: Allergies Coded Allergies Type Severity Reaction Last Updated Verified No Known Drug Allergies 04/22/16 No Physical Exam: PE: Constitutional: Well developed, well nourished, no acute distress, non-toxic appearance. [] HENT: Normocephalic, atraumatic, bilateral external ears normal, oropharynx moist, no oral exudates, nose normal. [] Eyes: PERRLA, EOMI, conjunctiva normal, no discharge. [] Neck: Normal range of motion, no tenderness, supple, no stridor. [] Cardiovascular:Heart rate regular rhythm, no murmur [] Lungs & Thorax: Bilateral breath sounds clear to auscultation [] Abdomen:soft, no tenderness, no masses, no pulsatile masses. [] Skin: Warm, dry, no erythema, no rash. [] Back: No tenderness, no CVA tenderness. [] Extremities: No tenderness, no cyanosis, no clubbing, ROM intact, no edema. [] Neurologic: Alert with intact cognitive function. No aphasia, dysarthria, or neglect. GCS 15. Pupils 3 mm briskly reactive b/l. No APD present. Cranial nerves 2-12 grossly intact; no facial asymmetry present, tongue midline, shoulder shrugging strength intact. Strength 5/5 and symmetric throughout. Light touch sensation intact throughout. Cerebellar testing appropriate without evidence of dysdiadochokinesia. DTR's 2+ in all 4 extremities. Negative pronator drift bilaterally. Gait normal Psychologic: Affect normal, judgement normal, mood normal. [] Current Patient Data: Labs: Laboratory Tests Test 03/22/20 22:30 White Blood Count 9.4 x10^3/uL Red Blood Count 4.22 x10^6/uL Hemoglobin 11.5 g/dL Hematocrit 34.5 % Mean Corpuscular Volume 82 fL Mean Corpuscular Hemoglobin 27 pg Mean Corpuscular Hemoglobin Concent 33 g/dL Red Cell Distribution Width 16.1 % Platelet Count 283 x10^3/uL Neutrophils (%) (Auto) 77 % Lymphocytes (%) (Auto) 17 % Monocytes (%) (Auto) 4 % Eosinophils (%) (Auto) 2 % Basophils (%) (Auto) 0 % Neutrophils # (Auto) 7.3 x10^3uL Lymphocytes # (Auto) 1.5 x10^3/uL Monocytes # (Auto) 0.4 x10^3/uL Eosinophils # (Auto) 0.1 x10^3/uL Basophils # (Auto) 0.0 x10^3/uL D-Dimer (Mya) 1.42 mg/L Sodium Level 136 mmol/L Potassium Level 3.0 mmol/L Chloride Level 105 mmol/L Carbon Dioxide Level 24 mmol/L Anion Gap 7 Blood Urea Nitrogen 6 mg/dL Creatinine 0.6 mg/dL Estimated GFR (Cockcroft-Gault) 115.1 Glucose Level 86 mg/dL Calcium Level 8.6 mg/dL Current Medications Medications (Trade) Dose Ordered Sig/Jason Route PRN Reason Start Time Stop Time Status Last Admin Dose Admin Sodium Chloride 1,000 ml @ 1,000 mls/hr 1X ONCE IV 03/22/20 22:30 03/22/20 23:29 DC 03/22/20 22:30 Potassium Chloride (Klor-Con) 40 meq 1X ONCE PO 03/22/20 23:45 03/22/20 23:46 UNV Magnesium Oxide (Magnesium Oxide) 400 mg 1X ONCE PO 03/22/20 23:45 03/22/20 23:46 UNV EKG: EKG: [] EKG consistent with normal sinus rhythm. Ventricular rate of 68 bpm. [place] normal. Intervals normal. No acute ischemic changes appreciated. Radiology/Procedures: Radiology/Procedures: [place] [address] IMAGING REPORT Signed PATIENT: YESENIA EPPERSON ACCOUNT: [id number] : 1985 LOCATION: ER AGE: 34 SEX: F EXAM STATUS: REG ER ORD. PHYSICIAN: TYLER PITTMAN DO REASON: syncope, lightheaded PROCEDURE: CHEST AP ONLY CHEST AP ONLY History: Reason: syncope, lightheaded / Spl. Instructions: / History: Comparison: Right shoulder radiograph January 31, 2020 Findings: Right proximal humerus osteochondroma, unchanged. No consolidation or pleural effusion. Normal heart size. No pneumothorax. Impression: 1. No acute cardiopulmonary process. Electronically signed by: Deny Kerns DO (03/22/2020 11:06 PM) [facility] DICTATED AND SIGNED BY: DENY KERNS DO DATE: 03/22/202305 CC: LAYA,EVY; TYLER PITTMAN DO ~ [] Course & Med Decision Making: Course & Med Decision Making Pertinent Labs and Imaging studies reviewed. (See chart for details) [] Patient is a 34-year-old female who presents with chief complaint of multiple syncopal events today. Initial vital signs unremarkable. EKG without acute ischemic changes. Basic labs were obtained. No signs of significant anemia. Chemistry panel shows mild hypokalemia of 3.0. D-dimer was obtained given her contraception use. This is mildly elevated. CT imaging was ordered. However my reevaluation the patient states that she has to go home because her daughter needs her. I did explain that we cannot fully exclude life or limb threatening illness including but not limited to pulmonary embolism given her elevated d- dimer without obtaining a CT image of her chest. She expressed understanding. Orthostatic vital signs were also obtained and were unremarkable. At this time the patient will be leaving AGAINST MEDICAL ADVICE given she does have an elevated d-dimer and will not stay for definitive imaging. She is alert and oriented x3. She does appear to have capacity. She does appear to have understanding of her basic healthcare needs and potential consequences. She was able to ambulate without difficulty. Return precautions discussed and understood. Instructed to follow-up with her primary care physician in the next 2 to 3 days. She was encouraged to report back to the emergency department at any time should he want further evaluation. Dragon Disclaimer: Caitlyn Disclaimer: This electronic medical record was generated, in whole or in part, using a voice recognition dictation system. Departure Departure: Impression: Primary Impression: Syncope Qualified Codes: R55 - Syncope and collapse Additional Impressions: Elevated d-dimer Anemia Qualified Codes: D64.9 - Anemia, unspecified Disposition: 07 AGAINST MEDICAL ADVICE Condition: STABLE Referrals: PCPEVY (PCP) Patient Instructions: Syncope Additional Instructions: Please return the emergency department at any time should he want to be reevaluated. Please follow-up with your primary care physician in the next 2 to 3 days. Justification of Admission: Justification of Admission: Justification of Admission Dx: N/A TYLER PITTMAN DO Mar 22, 2020 22:18
[2020-03-22] MEDS ORDERED: IV NORMAL SALINE 1,000ML 1,000 ML IV ONE (22:30)
[2020-03-22 23:03] LABS: BASO % 0 % (0-3); EOS # 0.1 x10^3/uL (0.0-0.7); EOS % 2 % (0-3); HEMATOCRIT 34.5 % (36.0-47.0); HEMOGLOBIN 11.5 g/dL (12.0-15.5); LYMPH # 1.5 x10^3/uL (1.0-4.8); LYMPH % 17 % (24-48); MEAN CORPUSCULAR HEMOGLOBIN 27 pg (25-35); MEAN CORPUSCULAR HGB CONC 33 g/dL (31-37); MEAN CORPUSCULAR VOLUME 82 fL (79-100); MONO # 0.4 x10^3/uL (0.0-1.1); MONO % 4 % (0-9); NEUT # 7.3 x10^3uL (1.8-7.7); NEUT % 77 % (31-73); PLATELET COUNT 283 x10^3/uL (140-400); RED BLOOD COUNT 4.22 x10^6/uL (3.50-5.40); RED CELL DISTRIBUTION WIDTH 16.1 % (11.5-14.5); WHITE BLOOD COUNT 9.4 x10^3/uL (4.0-11.0)
--- NOTE | 2020-03-22 23:09 | RAD ---
CHEST AP ONLY History: Reason: syncope, lightheaded / Spl. Instructions: / History: Comparison: Right shoulder radiograph January 31, 2020 Findings: Right proximal humerus osteochondroma, unchanged. No consolidation or pleural effusion. Normal heart size. No pneumothorax. Impression: 1. No acute cardiopulmonary process. Electronically signed by: Deny Bacon DO (03/22/2020 11:06 PM) [facility] [place]
[2020-03-22 23:10] LABS: CALCIUM 8.6 mg/dL (8.5-10.1); CREATININE 0.6 mg/dL (0.6-1.0); GFR 115.1
[2020-03-22 23:45] VITALS: BP 98/50
[2020-03-23] MEDS ORDERED: MAGNESIUM OXIDE 400 MG TABLET PO ONE
[2020-03-23] MEDS ORDERED: POTASSIUM CHLORIDE 20 MEQ TABLET.ER. PO ONE
--- NOTE | 2020-03-24 07:28 | EKG ---
[address] [address] Test Date: 2020-03-22 Test Time: 22:30:33 Pat Name: YESENIA EPPERSON Department: Room: Gender: F Traffic Control Specialist: : 1985 Requested By: TYLER PITTMAN Order Number: [id number] Reading MD: Measurements Intervals [place] Rate: 68 P: 35 MD: 160 QRS: 41 QRSD: 86 T: 25 QT: 386 QTc: 411 Interpretive Statements SINUS RHYTHM NORMAL ECG RI6.02 No previous ECG available for comparison
== END 2020-03-22 23:45 | disposition left against medical advice (07) ==
LOC: ER 21:18
DX: R55 Syncope and collapse (principal); R79.1 Abnormal coagulation profile; D64.9 Anemia, unspecified; F41.9 Anxiety disorder, unspecified; F32.9 Major depressive disorder, single episode, unspecified; I10 Essential (primary) hypertension; F17.210 Nicotine dependence, cigarettes, uncomplicated; F12.10 Cannabis abuse, uncomplicated
CPT/HCPCS: 36415; 71045; 80048; 85025; 85379; 93005; 96360; 99285; J7030

== ENCOUNTER 2020-07-29 10:16 | Emergency (ER) | payer MEDICAID ==
[~2020-07-29] VITALS: Ht 160 cm; Wt 72.6 kg
[2020-07-29 10:58] LABS: CLARITY,URINE CLEAR; COLOR,URINE YELLOW
[2020-07-29 10:59] LABS: AMORPHOUS SEDIMENT,UR PRESENT /HPF; BACTERIA,URINE FEW /HPF (0-FEW); BILIRUBIN,URINE NEG (NEG); GLUCOSE,URINE NEG (NEG); NITRITE,URINE NEG (NEG); SQUAMOUS EPITHELIAL CELL,UR MANY /LPF; UROBILINOGEN,URINE 0.2 mg/dL (0.2 mg/dL)
[2020-07-29 11:41] VITALS: BP 141/81
[2020-07-29] MEDS ORDERED: NITR100C62 PO (11:45)
--- NOTE | 2020-07-29 11:45 | PHYS DOC ---
Past History Past Medical History: Anxiety, Depression, Hypertension, Ovarian Cyst Past Surgical History: Cholecystectomy, Additional Past Surgical Histo: C - Section x2, d & c Smoking: Cigarettes Alcohol Use: None Drug Use: None Adult General Chief Complaint Chief Complaint: ABDOMINAL PAIN IN [facility] HPI Patient is a 34-year-old G 10 P7 who presents to the emergency room stating that she believes she is . She states that she has noticed her weight has been fluctuating for a while but thought that she was just being weight. She then started ballooning out over the last 2 weeks and relates that maybe she was . She has been having pain over the last couple days. She states it feels like pressure. She denies any vaginal bleeding or discharge. She denies any urinary symptoms. She states that she does not feel the baby move. Review of Systems Review of Systems Complete ROS is negative unless otherwise documented in [facility] Allergies Allergies Allergies Coded Allergies Type Severity Reaction Last Updated Verified No Known Drug Allergies 04/22/16 No Physical Exam Physical Exam General: Awake, alert, NAD. Well Nourished, well hydrated. Cooperative HEENT: Atraumatic, EOMI, PERRL, airway patent, moist oral mucosa Neck: Supple, trachea midline Respiratory: CTA bilaterally, normal effort, no wheezing/crackles CV: RRR, no murmur, cap refill <2 GI: Soft, distended abdomen, uterus palpated above the umbilicus MSK: No obvious deformities Skin: Warm, dry, intact Neuro: A&O x3, speech NL, sensory and motor grossly intact, no focal deficits Psych: Normal affect, normal mood, not suicidal or homicidal Current Patient Data Vital Signs Vital Signs Date Time Temp Pulse Resp B/P (MAP) Pulse Ox O2 Delivery O2 Flow Rate FiO2 07/29/20 10:32 98.0 84 18 140/64 (89) 99 Room Air Lab Results Laboratory Tests Test 07/29/20 10:32 Urine Collection Type Unknown Urine Color Yellow Urine Clarity Clear Urine pH 7.0 Urine Specific [place] 1.015 Urine Protein Neg (NEG-TRACE) Urine Glucose (UA) Neg mg/dL (NEG) Urine Ketones (Stick) Neg mg/dL (NEG) Urine Blood Small (NEG) Urine Nitrite Neg (NEG) Urine Bilirubin Neg (NEG) Urine Urobilinogen Dipstick 0.2 mg/dL (0.2 mg/dL) Urine Leukocyte Esterase Small (NEG) Urine RBC 1-2 /HPF (0-2) Urine WBC 1-4 /HPF (0-4) Urine Squamous Epithelial Cells Many /LPF Urine Amorphous Sediment Present /HPF Urine Bacteria Few /HPF (0-FEW) EKG EKG [] Radiology/Procedures Radiology/Procedures [] Heart Score Risk Factors: Risk Factors: DM, Current or recent (<one month) smoker, HTN, HLP, family history of CAD, obesity. Risk Scores: Risk Factors: DM, Current or recent (<one month) smoker, HTN, HLP, family history of CAD, obesity. Course & Med Decision Making Course & Med Decision Making Pertinent Labs and Imaging studies reviewed. (See chart for details) Patient is a 34-year-old female who presents to the emergency room complaining of abdominal pain and stating that she feels like she might be . On exam I was able to palpate the uterus above the umbilicus. Bedside ultrasound was performed by myself which showed a IUP. Formal ultrasound was ordered. UA shows some white blood cells and patient will be treated with Macrobid. I have discussed the case with the women's specialty clinic here in [place] who will follow up the patient on Saturday. Patient's test results and vitals while in the ED were fully reviewed and discussed with the patient. Patient is stable and at this time does not need admission to the hospital. We have discussed strict return precautions and the importance of following up with their Primary Care Physician. Patient stated understanding and was given an opportunity to ask any questions. Patient is in agreement with plan. Dragon Disclaimer Dragon Disclaimer This electronic medical record was generated, in whole or in part, using a voice recognition dictation system. Departure Departure: Impression: Primary Impression: Abdominal pain affecting Disposition: 01 DC HOME SELF CARE/HOMELESS Condition: STABLE Referrals: PCP,NO (PCP) Patient Instructions: ABCs of , Abdominal Pain During Additional Instructions: You were seen here today for abdominal pain. You are 33 weeks and 4 days . Your due date is September 12. If you develop any bleeding, discharge, or severe abdominal pain you should report to Labor and Delivery or your closest Emergency Room. Scripts Nitrofurantoin Monohyd/M-Cryst (MACROBID 100 MG CAPSULE) 100 Mg Capsule 1 CAP PO BID for UTI for 5 Days, #10 CAP 0 Refills Prov: SANDRA QUINN MD 07/29/20 SANDRA QUINN MD Jul 29, 2020 11:45
--- NOTE | 2020-07-29 11:51 | RAD ---
OB ultrasound greater than 14 weeks 07/29/2020 Clinical History: Third trimester of uncertain dates. Abdominal pain. Technique: A real-time ultrasound examination of the gravid uterus was performed. Multiple images wer e obtained. Findings: There is a single living IUP. The fetus is in a cephalic position. cardiac and somati c activity is seen. The heart rate is 145 beats per minutes. The maternal cervix is closed. It measures 3.73 cm in length. The placenta is posterior. No abnormality is seen. The amniotic fluid vol ume is within normal limits. The HENRRY measures 11.9 cm. Neither maternal ovary is visualized. The following measurements were obtained: BPD 8.29cm 33 weeks to days HC 30.11 cm 23weeks 3 days AC 29.74 cm 33weeks 5 days FL 6.5 to cm 33 weeks 4 days The estimated gestational age by ultrasound is 33 weeks 4 days plus or minus a standard deviation of 3 weeks. The estimated date of delivery by ultrasound is 09/12/2020. The estimated weight is 2237 g +/- 331 g (4 lbs. 13 oz.). Evaluation of anatomy is limited due to the advanced age of this and the position of the head. No obvious abnormality is seen. Specifically the stomach, bladder, kidney s, and four-chamber heart are well-visualized and within normal limits. Impression: Single living IUP with an estimated gestational age by ultrasound of 33 weeks4 days +/- a standard deviation of 3 weeks. The estimated date of delivery by ultrasound is 09/12/2020. Electronically signed by: Trae Pozo MD (07/29/2020 11:48 AM) [id number]
== END 2020-07-29 11:50 | disposition home or self-care (01) ==
LOC: ER 10:16
DX: O26.893 Other specified pregnancy related conditions, third trimester (principal); R10.9 Unspecified abdominal pain; R14.0 Abdominal distension (gaseous); O99.333 Smoking (tobacco) complicating pregnancy, third trimester; O16.3 Unspecified maternal hypertension, third trimester; Z3A.33 33 weeks gestation of pregnancy
CPT/HCPCS: 76805; 81001; 87086; 99284

== ENCOUNTER 2020-08-07 16:59 | Emergency (ER) | payer MEDICAID ==
[~2020-08-07] VITALS: Ht 160 cm; Wt 72.0 kg
[~2020-08-07 16:59] MED LIST changes: +NITR100C62 PO
[2020-08-07] MEDS ORDERED: MORPHINE SULFATE 4 MG/ML DISP.SYRIN. IV ONE ×4 (17:15→19:00)
[2020-08-07 17:50] LABS: BASO % 0 % (0-3); EOS # 0.2 x10^3/uL (0.0-0.7); EOS % 1 % (0-3); HEMATOCRIT 30.6 % (36.0-47.0); LYMPH # 1.2 x10^3/uL (1.0-4.8); LYMPH % 10 % (24-48); MEAN CORPUSCULAR HEMOGLOBIN 26 pg (25-35); MEAN CORPUSCULAR HGB CONC 33 g/dL (31-37); MEAN CORPUSCULAR VOLUME 80 fL (79-100); MONO # 0.6 x10^3/uL (0.0-1.1); MONO % 5 % (0-9); NEUT % 84 % (31-73); PLATELET COUNT 317 x10^3/uL (140-400); RED BLOOD COUNT 3.81 x10^6/uL (3.50-5.40); RED CELL DISTRIBUTION WIDTH 14.4 % (11.5-14.5)
--- NOTE | 2020-08-07 17:58 | PHYS DOC ---
Past History Past Medical History: No Pertinent History Past Surgical History: , Other Additional Past Surgical Histo: D&C Smoking: Cigarettes Alcohol Use: None Drug Use: None Adult General Chief Complaint Chief Complaint: OB/UTERINE CONTRACTIONS HPI HPI Patient is a [age] year old [sex] who presents with [] Review of Systems Review of Systems Constitutional: Denies fever or chills [] Eyes: Denies change in visual acuity, redness, or eye pain [] HENT: Denies nasal congestion or sore throat [] Respiratory: Denies cough or shortness of breath [] Cardiovascular: No additional information not addressed in HPI [] GI: Denies abdominal pain, nausea, vomiting, bloody stools or diarrhea [] : Denies dysuria or hematuria [] Musculoskeletal: Denies back pain or joint pain [] Integument: Denies rash or skin lesions [] Neurologic: Denies headache, focal weakness or sensory changes [] Endocrine: Denies polyuria or polydipsia [] All other systems were reviewed and found to be within normal limits, except as documented in this note. Current Medications Current Medications Current Medications Medications (Trade) Dose Ordered Sig/Jason Start Time Stop Time Status Last Admin Dose Admin Morphine Sulfate (Morphine 4mg Syringe) 4 mg 1X ONCE 08/07/20 18:00 08/07/20 18:01 Allergies Allergies Allergies Coded Allergies Type Severity Reaction Last Updated Verified No Known Drug Allergies 08/07/20 No Physical Exam Physical Exam Constitutional: Well developed, well nourished, no acute distress, non-toxic appearance. [] HENT: Normocephalic, atraumatic, bilateral external ears normal, oropharynx moist, no oral exudates, nose normal. [] Eyes: PERRLA, EOMI, conjunctiva normal, no discharge. [] Neck: Normal range of motion, no tenderness, supple, no stridor. [] Cardiovascular:Heart rate regular rhythm, no murmur [] Lungs & Thorax: Bilateral breath sounds clear to auscultation [] Abdomen: Bowel sounds normal, soft, no tenderness, no masses, no pulsatile masses. [] Skin: Warm, dry, no erythema, no rash. [] Back: No tenderness, no CVA tenderness. [] Extremities: No tenderness, no cyanosis, no clubbing, ROM intact, no edema. [] Neurologic: Alert and oriented X 3, normal motor function, normal sensory function, no focal deficits noted. [] Psychologic: Affect normal, judgement normal, mood normal. [] Current Patient Data Vital Signs Vital Signs Date Time Temp Pulse Resp B/P (MAP) Pulse Ox O2 Delivery O2 Flow Rate FiO2 08/07/20 17:47 87 16 122/90 (101) 98 Room Air 2.5 08/07/20 17:05 98.0 EKG EKG [] Radiology/Procedures Radiology/Procedures [] Heart Score Risk Factors: Risk Factors: DM, Current or recent (<one month) smoker, HTN, HLP, family history of CAD, obesity. Risk Scores: Risk Factors: DM, Current or recent (<one month) smoker, HTN, HLP, family history of CAD, obesity. Course & Med Decision Making Course & Med Decision Making Pertinent Labs and Imaging studies reviewed. (See chart for details) [] Dragon Disclaimer Dragon Disclaimer This electronic medical record was generated, in whole or in part, using a voice recognition dictation system. Departure Departure: Referrals: PCP,EVY (PCP) SANDRA QUINN MD Aug 07, 2020 17:58
[2020-08-07] MEDS ORDERED: IV NORMAL SALINE 1,000ML 1,000 ML IV ONE ×2 (18:15→18:30)
[2020-08-07 18:56] LABS: CALCIUM 8.2 mg/dL (8.5-10.1); CREATININE 0.6 mg/dL (0.6-1.0); GFR 115.1; POTASSIUM 3.6 mmol/L (3.5-5.1)
[2020-08-07] MEDS ORDERED: OXYTOCIN 10 UNIT/ML VIAL. ONE ×2 (19:10→19:16)
[2020-08-07] MEDS ORDERED: METHYLERGONOVINE MALEATE 0.2 MG/ML VIAL. IM ONE (19:11)
[2020-08-07] MEDS ORDERED: IV NORMAL SALINE 500ML 500 ML ONE (19:16)
[2020-08-07 20:32] LABS: % LYMPHS 11 % (24-48); % MONOS 4 % (0-10); % SEGS 85 % (35-66); PLT ESTIMATE ADEQUATE (ADEQUATE)
[2020-08-07 21:23] VITALS: BP 107/76
== END 2020-08-07 21:25 | disposition short-term general hospital (02) ==
LOC: ER 16:59
DX: N85.8 Other specified noninflammatory disorders of uterus (principal); F17.210 Nicotine dependence, cigarettes, uncomplicated; Z98.890 Other specified postprocedural states
CPT/HCPCS: 36415; 80048; 85007; 85025; 96361; 96374; 96376; 99285; J2270; J7030

== ENCOUNTER 2021-10-23 09:23 | Emergency (ER) | payer MEDICAID ==
[~2021-10-23] VITALS: Ht 157.5 cm; Wt 62.5 kg
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
[2021-10-23] MEDS ORDERED: HYDROcodone/APAP 5/325MG 1 TAB TABLET PO ONE (09:45)
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
[2021-10-23 10:37] VITALS: BP 137/90
== END 2021-10-23 10:42 | disposition home or self-care (01) ==
LOC: ER 09:23
DX: S62.665A Nondisplaced fracture of distal phalanx of left ring finger, initial encounter for closed fracture (principal); F17.210 Nicotine dependence, cigarettes, uncomplicated; Y08.89XA Assault by other specified means, initial encounter; Y93.89 Activity, other specified; Y92.89 Other specified places as the place of occurrence of the external cause; Y99.8 Other external cause status
CPT/HCPCS: 29130; 99283; 73130-50